=== PATIENT | female | born 1995 | race Caucasian/White ===

== ENCOUNTER 2017-04-19 09:34 | Inpatient (IN) | payer OTHER ==
[~2017-04-19] VITALS: Ht 172.7 cm; Wt 62.3 kg
[2017-04-19] MEDS ORDERED: LIDOCAINE 1%, 20ML ONE (09:54)
[2017-04-19] MEDS ORDERED: HYDROcodone/APAP 5/325 TABLET ONE (10:10)
[2017-04-19] MEDS ORDERED: DIPH,PERTUSS(ACELL),TET VAC/PF 0.5 ML IM-VACC ONE ×2 (10:11→10:30)
[2017-04-19] MEDS ORDERED: HYDROcodone/APAP 5/325 TABLET PO PRN (10:30)
[2017-04-19] MEDS ORDERED: SODIUM CHLORIDE FLUSH 10ML SYR IVF ONE (11:00)
[2017-04-19] MEDS ORDERED: BACITRACIN ZINC OINT 500U/GM, 0.9 GM ONE ×2 (11:04→11:13)
[2017-04-19] MEDS ORDERED: CEFAZOLIN PMX 1GM/50ML 50 ML IV ONE (11:30)
[2017-04-19 11:46] LABS: HEMATOCRIT 41.6 % (34.6-47.8); HEMOGLOBIN 13.9 g/dL (11.7-16.4); WHITE BLOOD COUNT 7.2 x10^3/uL (4.5-13.2)
[2017-04-19 11:52] LABS: BLOOD UREA NITROGEN 13 mg/dL (7-18)
[2017-04-19] MEDS ORDERED: CEFAZOLIN PMX 1GM/50ML 50 ML ONE (12:09)
[2017-04-19] MEDS ORDERED: morphine SULFATE 10 MG/ML, 1ML IVPush PRN (12:30)
[2017-04-19] MEDS ORDERED: CEFAZOLIN PMX 1GM/50ML 50 ML IV SCH (12:30)
[2017-04-19] MEDS ORDERED: MORPHINE SULFATE 4 MG/ML, 1ML ONE ×2 (12:32→14:50)
[2017-04-19] MEDS ORDERED: ONDANSETRON 2MG/ML, 2ML ONE ×2 (12:33→18:42)
[2017-04-19] MEDS: ONDANSETRON 2MG/ML, 2ML IVPush PRN ×2 (12:34→22:16)
[2017-04-19] MEDS: morphine SULFATE 10 MG/ML, 1ML IVPush PRN ×2 (14:57→17:10)
[2017-04-19] MEDS: D5%-0.45% NACL 1,000 ML IV SCH ×2 (15:06→22:16)
[2017-04-19] MEDS ORDERED: SCOPOLAMINE PATCH, 1.5MG PATCH.TD72 TD ONE (16:38)
[2017-04-19] MEDS ORDERED: FENTANYL PF 100 MCG/2ML ONE (18:28)
[2017-04-19] MEDS ORDERED: HYDROmorphone 1 MG/ML, 1ML ONE (18:28)
[2017-04-19] MEDS ORDERED: LIDOCAINE/PF 1%, 30ML ONE (18:33)
[2017-04-19] MEDS ORDERED: BUPIVACAINE/PF 0.5% ONE (18:33)
[2017-04-19] MEDS ORDERED: CEFAZOLIN 1,000 MG ONE (18:42)
[2017-04-19] MEDS ORDERED: KETOROLAC 30 MG/1 ML ONE (18:42)
[2017-04-19] MEDS ORDERED: METOCLOPRAMIDE 5 MG/ML, 2ML ONE (18:42)
[2017-04-19] MEDS ORDERED: PROPOFOL 10 MG/ML, 20ML ONE (18:42)
[2017-04-19] MEDS ORDERED: DEXAMETHASONE 4 MG/ML, 5ML ONE (18:42)
[2017-04-19] MEDS ORDERED: ONDANSETRON 2MG/ML, 2ML IVPush PRN (19:00)
[2017-04-19] MEDS ORDERED: OXYcodone 5 MG/5 ML ORAL.SOL UDC PO PRN (19:00)
[2017-04-19] MEDS ORDERED: MEPERIDINE/PF 25MG/0.5ML IVPush PRN (19:00)
[2017-04-19] MEDS ORDERED: hydrALAzine 20 MG/ML, 1ML IV PRN (19:00)
[2017-04-19] MEDS ORDERED: LABETALOL 5MG/ML, 20ML IV PRN (19:00)
[2017-04-19] MEDS ORDERED: MIDAZOLAM 1 MG/ML, 2ML IV PRN (19:00)
[2017-04-19] MEDS ORDERED: HYDROmorphone 1 MG/ML, 1ML IV PRN (19:00)
[2017-04-19] MEDS ORDERED: FENTANYL PF 100 MCG/2ML IV PRN (19:00)
[2017-04-19] MEDS ORDERED: PROMETHAZINE 25 MG/ML, 1ML IV PRN (19:00)
[2017-04-19] MEDS ORDERED: OXYcodone 5 MG/5 ML ORAL.SOL UDC ONE (20:52)
[2017-04-19 23:05] VITALS: BP 102/56
[2017-04-20] MEDS: HYDROmorphone 1 MG/ML, 1ML IV PRN ×3 (01:10→09:11)
[2017-04-20 02:59] VITALS: BP 105/60
[2017-04-20] MEDS: CEFAZOLIN PMX 1GM/50ML 50 ML IV SCH ×2 (03:07→11:28)
[2017-04-20] MEDS: D5%-0.45% NACL 1,000 ML IV SCH (03:08)
[2017-04-20 06:15] LABS: HEMATOCRIT 37.5 % (34.6-47.8); HEMOGLOBIN 12.6 g/dL (11.7-16.4); WHITE BLOOD COUNT 10.2 x10^3/uL (4.5-13.2)
[2017-04-20] MEDS: ONDANSETRON 2MG/ML, 2ML IVPush PRN (06:21)
[2017-04-20 06:23] LABS: BLOOD UREA NITROGEN 9 mg/dL (7-18)
[2017-04-20 09:10] VITALS: BP 90/47
[2017-04-20] MEDS ORDERED: ONDANSETRON ODT 4 MG ONE (13:21)
[2017-04-20] MEDS: HYDROcodone/APAP 5/325 TABLET PO PRN ×3 (13:23→17:48)
[2017-04-20] MEDS ORDERED: ONDANSETRON ODT 4 MG PO PRN (13:30)
[2017-04-20 15:59] VITALS: BP 123/66
[2017-04-20] MEDS ORDERED: HYDR-3240 PO (16:52)
[2017-04-20] MEDS ORDERED: ONDA4TAB13 PO (16:52)
[2017-04-20] MEDS ORDERED: AMOX1TAB64 PO (16:56)
[2017-04-20 17:52] VITALS: BP 106/67
== END 2017-04-20 18:13 | disposition home or self-care (01) | DRG 514 ==
LOC: ED 10:25 → EDIP 11:35 → 4NOR 12:50
PROVIDERS: ADMIT Internal Medicine; ATTEND Internal Medicine
PROC: 0LQ70ZZ Repair Right Hand Tendon, Open Approach (ICD-10-PCS; 2017-04-19)
PROC: 0PSR34Z Reposition Right Thumb Phalanx with Internal Fixation Device, Percutaneous Approach (ICD-10-PCS; principal; 2017-04-19 18:30)
DX: S62.511B Displaced fracture of proximal phalanx of right thumb, initial encounter for open fracture (principal); F12.90 Cannabis use, unspecified, uncomplicated; W54.0XXA Bitten by dog, initial encounter; Y93.89 Activity, other specified; Y92.89 Other specified places as the place of occurrence of the external cause; Y99.8 Other external cause status
CPT/HCPCS: 36415; 76001; 80048; 82040; 84702; 85025; 90715; J0690; J1100; J1170; J1885; J2405; J2704; J3010; J3490; Q0162; J2270; J2765

== ENCOUNTER 2019-10-30 11:34 | Emergency (ER) | payer OTHER ==
[~2019-10-30] VITALS: Ht 172.7 cm; Wt 61.5 kg
[~2019-10-30 11:34] MED LIST: AMOX1TAB64 PO; HYDR-3240 PO; ONDA4TAB13 PO
--- NOTE | 2019-10-30 11:57 | NUR ---
SENT FROM [facility] FOR WORSENING SORE THROAT POSSIBLE ABCESS. PT AWAKE, ALERT, NO DIFFICULTY WITH AIRWAY. EASILY WINDED DUE TO SORE THROAT. Addendum: 10/30/19 at 1201 by [email or web address] SENT FROM [facility]RGENT [facility]ARE FOR WORSENING SORE THROAT POSSIBLE ABCESS. PT AWAKE, ALERT, NO DIFFICULTY WITH AIRWAY, HOWEVER SOME DIFFICULTY SWALLOWING. EASILY WINDED DUE TO SORE THROAT. ON PCN FOR 4 DAYS.
[2019-10-30] MEDS ORDERED: BENZOCAINE 20% SPRAY 0.5ML TP ONE (12:30)
[2019-10-30] MEDS ORDERED: LIDOCAINE-MPF 1%, 5ML INFIL ONE (12:30)
[2019-10-30] MEDS ORDERED: BENZOCAINE AEROSOL SPRAY 20%, 60ML ONE (12:48)
[2019-10-30 13:00] VITALS: BP 137/89
--- NOTE | 2019-10-30 13:00 | NUR ---
TONO FLORESM AT BEDSIDE FOR PROCEDURE.
[2019-10-30] MEDS ORDERED: DEXAMETHASONE 4 MG/ML, 5ML ONE (13:21)
[2019-10-30] MEDS ORDERED: ONDANSETRON 2MG/ML, 2ML ONE (13:21)
[2019-10-30] MEDS ORDERED: MORPHINE SULFATE 4 MG/ML, 1ML ONE (13:21)
[2019-10-30] MEDS ORDERED: DEXAMETHASONE 4 MG/ML, 1ML IVPush ONE (13:30)
[2019-10-30] MEDS ORDERED: ONDANSETRON 2MG/ML, 2ML IVPush ONE (13:30)
[2019-10-30] MEDS ORDERED: SODIUM CHLORIDE FLUSH 10ML SYR IVF ONE (13:30)
[2019-10-30] MEDS ORDERED: MORPHINE SULFATE 4 MG/ML, 1ML IVPush PRN (13:30)
--- NOTE | 2019-10-30 13:30 | NUR ---
TONO LANE AT BEDSIDE TO DISCUSS POC
--- NOTE | 2019-10-30 13:58 | NUR ---
DISCHARGE INSTRUCTIONS REVIEWED
== END 2019-10-30 14:00 | disposition home or self-care (01) ==
LOC: ED 13:53
DX: J36 Peritonsillar abscess (principal)
CPT/HCPCS: 42700; 96374; 96375; 99284; J1100; J2270; J2405

== ENCOUNTER 2019-11-02 12:05 | Emergency (ER) | payer OTHER ==
[~2019-11-02] VITALS: Ht 172.7 cm; Wt 62.3 kg
--- NOTE | 2019-11-02 12:41 | NUR ---
FIRST CONTACT WITH PT. PT STATES "I WAS HERE FOR STREP THROAT A FEW DAYS AGO, I GOT STEROIDS AND ANTIBIOTICS BUT THE SWELLING AND PAIN IS GETTING WORSE, I CAN'T EAT OR DRINK" PT C/O SORE THROAT/DIFICULTY SWALLOWING. PT'S AOX4. RESPS EVEN AND UNLABORED. BP/SPO2 MONITORS IN PLACE. CALL LIGHT WITHIN REACH.
[2019-11-02] MEDS ORDERED: DEXAMETHASONE 4 MG/ML, 1ML ONE (12:48)
[2019-11-02] MEDS ORDERED: KETOROLAC 30 MG/1 ML ONE (12:49)
[2019-11-02 12:55] LABS: BASOPHILS # (AUTO) 0.03 x10^3/uL (0-0.1); BASOPHILS % (AUTO) 0 % (0-1); EOSINOPHILS # (AUTO) 0.01 x10^3/uL (0-0.4); EOSINOPHILS % (AUTO) 0 % (1-7); LYMPHOCYTES # (AUTO) 1.44 x10^3/uL (1-3.4); LYMPHOCYTES % (AUTO) 13 % (22-44); MD NO; MEAN CORPUSCULAR HEMOGLOBIN 32.5 pg (27.0-34.8); MEAN CORPUSCULAR VOLUME 95.5 fL (80-100); MEAN PLATELET VOLUME 9.5 fL (7.4-10.4); MONOCYTES # (AUTO) 0.71 x10^3/uL (0.2-0.8); MONOCYTES % (AUTO) 6 % (2-9); NEUTROPHILS % (AUTO) 81 % (42-75); PLATELET COUNT 273 x10^3/uL (130-400); RED BLOOD COUNT 4.24 x10^6/uL (3.82-5.3); RED CELL DISTRIBUTION WIDTH 12.6 % (9.6-15.2)
[2019-11-02] MEDS ORDERED: AMPICILLIN/SULBACTAM 3 GM in SODIUM CHLORIDE 0.9% 100 ML IV ONE (13:00)
[2019-11-02] MEDS ORDERED: SODIUM CHLORIDE FLUSH 10ML SYR IVF ONE (13:00)
[2019-11-02] MEDS ORDERED: KETOROLAC 30 MG/1 ML IVPush ONE (13:00)
[2019-11-02] MEDS ORDERED: DEXAMETHASONE 4 MG/ML, 1ML IV ONE (13:00)
--- NOTE | 2019-11-02 13:09 | NUR ---
PT MEDICATED PER EMAR. PT TOLERATED WELL. ABX INFUSING AT THIS TIME. NO NEED BLOOD CULTURE PER EDMD.
--- NOTE | 2019-11-02 13:22 | NUR ---
LUNCH RN: PT TAKEN TO CT
--- NOTE | 2019-11-02 13:44 | NUR ---
PT BACK TO ROOM FROM CT AT THIS TIME.
[2019-11-02] MEDS ORDERED: LIDOCAINE 1%, 10ML INFIL ONE (14:00)
[2019-11-02] MEDS ORDERED: CETACAINE 50ML TP ONE (14:00)
[2019-11-02] MEDS ORDERED: LIDOCAINE-MPF 1%, 5ML ONE (14:04)
[2019-11-02] MEDS ORDERED: BENZOCAINE AEROSOL SPRAY 20%, 60ML ONE (14:04)
[2019-11-02 14:09] VITALS: BP 117/63
--- NOTE | 2019-11-02 14:18 | NUR ---
EDMD AT BEDSIDE TO DO PROCEDURE AT THIS TIME. PT TOLERATED WELL.
--- NOTE | 2019-11-02 14:19 | NUR ---
dr benitez spoke with dr lopez
--- NOTE | 2019-11-02 14:39 | NUR ---
Patient given discharge instructions and they have confirmed that they understand the instructions. Patient ambulatory with steady gait.
== END 2019-11-02 14:40 | disposition home or self-care (01) ==
LOC: ED 14:06
DX: J36 Peritonsillar abscess (principal); R07.0 Pain in throat
CPT/HCPCS: 36415; 42700; 70491; 85025; 86308; 96365; 96375; 99285; J0295; J1100; J1885

== ENCOUNTER 2020-01-06 08:59 | Emergency (ER) | payer SELFPAY ==
[~2020-01-06] VITALS: Ht 172.7 cm; Wt 60.4 kg
--- NOTE | 2020-01-06 09:18 | NUR ---
FIRST CONTACT WITH PT. PT C/O ABCESS IN BACK OF THROAT DXd 2 MONTHS AGO HERE ON [address]. PT DIDN'T SEE RECOMMENDED SPECIALIST. TODAY HAVING PAIN IN RIGHT BACK OF THROAT WITH DIFFICULTY SWALLOWING. WOULD LIKE ABCESS DRAINED TODAY. PT'S AOX4. RESPS EVEN AND UNLABORED. BP/SPO2 MONITORS IN PLACE. CALL LIGHT WITHIN REACH.
[2020-01-06] MEDS ORDERED: LIDOCAINE 1%-EPI 1:100K, 20ML ONE (09:42)
[2020-01-06] MEDS ORDERED: DEXAMETHASONE 4 MG TABLET ONE (09:55)
[2020-01-06 09:57] VITALS: BP 108/64
[2020-01-06] MEDS ORDERED: DEXAMETHASONE 4 MG TABLET PO ONE (10:00)
--- NOTE | 2020-01-06 10:01 | NUR ---
PT MEDICATED PER EMAR. PT TOLERATED WELL.
--- NOTE | 2020-01-06 10:32 | NUR ---
Patient given discharge instructions and they have confirmed that they understand the instructions. Patient ambulatory with steady gait.
== END 2020-01-06 10:32 | disposition home or self-care (01) ==
LOC: ED 10:16
DX: J36 Peritonsillar abscess (principal); F17.200 Nicotine dependence, unspecified, uncomplicated
CPT/HCPCS: 42700; 99283; 99284